=== PATIENT | female | born 1970 | race Caucasian/White ===

== ENCOUNTER 2016-09-16 06:55 | Outpatient (RCR) | payer BC ==
[2016-09-04] MEDS: IRON SUCROSE 200 MG/NS 100 ML (IVPB) IV SCH ×2 (09:45)
[2016-09-04 10:45] VITALS: BP 124/84
[2016-09-08 07:53] VITALS: BP 114/70
[2016-09-08] MEDS: IRON SUCROSE 200 MG/NS 100 ML (IVPB) IV SCH ×2 (07:53)
[2016-09-08 08:12] VITALS: BP 114/70
[2016-09-10] MEDS: IRON SUCROSE 200 MG/NS 100 ML (IVPB) IV SCH ×2 (10:19)
[2016-09-10 10:43] VITALS: BP 118/71
[2016-09-14 07:50] VITALS: BP 119/76
[~2016-09-16] VITALS: Ht 170.2 cm; Wt 126.1 kg
[~2016-09-16 06:55] MED LIST: IRON SUCROSE 200 MG/10 ML (VENOFER) VIAL IV ONE; NS (IVPB) 50 ML ONE
[2016-09-16] MEDS ORDERED: NS (IVPB) 50 ML ONE (06:59)
[2016-09-16] MEDS ORDERED: IRON SUCROSE 200 MG/10 ML (VENOFER) VIAL IV ONE (06:59)
[2016-09-16] MEDS: IRON SUCROSE 200 MG/NS 100 ML (IVPB) IV SCH ×2 (07:10)
[2016-09-16 07:25] VITALS: BP 118/77
== END 2016-12-03 | disposition home or self-care (01) ==
LOC: SDC 06:55
PROVIDERS: ATTEND Internal Medicine
DX: D50.9 Iron deficiency anemia, unspecified (principal)
CPT/HCPCS: 96365

== ENCOUNTER 2017-05-10 06:53 | Outpatient (RCR) | payer BC ==
[2017-04-30] MEDS: IRON SUCROSE 200 MG/10 ML (VENOFER) VIAL IV ONE (07:37)
[2017-04-30 08:00] VITALS: BP 98/61
[2017-05-03] MEDS: IRON SUCROSE 200 MG/NS 100 ML (IVPB) IV SCH ×4 (07:35→07:45)
[2017-05-03 08:05] VITALS: BP 103/70
[2017-05-05 07:35] VITALS: BP 114/69
[2017-05-05] MEDS: IRON SUCROSE 200 MG/10 ML (VENOFER) VIAL IV SCH (07:38)
[2017-05-05 08:12] VITALS: BP 114/69
[2017-05-07 07:10] VITALS: BP 104/67
[2017-05-07] MEDS: IRON SUCROSE 200 MG/10 ML (VENOFER) VIAL IV SCH (07:25)
[~2017-05-10] VITALS: Ht 170.2 cm; Wt 126.1 kg
[~2017-05-10 06:53] MED LIST changes: +NS (IVPB) 100 ML ONE; -NS (IVPB) 50 ML ONE
[2017-05-10] MEDS: IRON SUCROSE 200 MG/10 ML (VENOFER) VIAL IV SCH (07:00)
[2017-05-10 07:25] VITALS: BP 116/73
[2017-06-04] MEDS: IRON SUCROSE 200 MG/10 ML (VENOFER) VIAL IV ONE (10:19)
== END 2017-07-29 | disposition home or self-care (01) ==
LOC: SDC 06:53
PROVIDERS: ATTEND Internal Medicine
DX: D50.9 Iron deficiency anemia, unspecified (principal)
CPT/HCPCS: 96365

== ENCOUNTER → 2017-07-02 | Outpatient (CLI) | payer BC ==
--- NOTE | 2017-07-02 17:22 | Diagnostic Imaging Report ---
INDICATION: Routine screening. Comparison is made with prior exams from 04/08/2016 and 03/01/2015. The current study was also evaluated with a Computer Aided Detection (CAD) system. FINDINGS: Scattered fibroglandular densities are identified bilaterally. There is a circumscribed nodule in the far posterior right breast centrally, most consistent with intramammary lymph node. This appears stable. No new mass or malignant-appearing microcalcifications are seen. The axillae are unremarkable. IMPRESSION: No mammographic features suspicious for malignancy are identified. ACR BI-RADS Category 2: Benign findings. Result letter will be mailed to the patient. Note: At least 10% of breast cancer is not imaged by mammography. Dictated by: Dictated on workstation # [id number]
== END ==
LOC: RAD 12:59
PROVIDERS: ATTEND Internal Medicine
DX: Z12.31 Encounter for screening mammogram for malignant neoplasm of breast (principal)
CPT/HCPCS: 77067

== ENCOUNTER → 2018-06-24 | Outpatient (CLI) | payer BC ==
--- NOTE | 2018-06-27 08:47 | Diagnostic Imaging Report ---
INDICATION: Routine screening. COMPARISON: 07/02/2017 and 04/08/2016. TECHNIQUE: 2D and 3D bilateral screening mammography was performed with CAD. FINDINGS: Scattered fibroglandular densities are identified bilaterally. The circumscribed nodule in the central right breast appears stable. The nodular density in the inferior right breast is stable. No new mass or malignant appearing microcalcifications are seen. The axillae are unremarkable. IMPRESSION: No mammographic features suspicious for malignancy are identified. ACR BI-RADS Category 2: Benign findings. Result letter will be mailed to the patient. Note: At least 10% of breast cancer is not imaged by mammography. Dictated by: Dictated on workstation # [id number]
== END ==
LOC: RAD 12:57
PROVIDERS: ATTEND Internal Medicine
DX: Z12.31 Encounter for screening mammogram for malignant neoplasm of breast (principal)
CPT/HCPCS: 77067

== ENCOUNTER → 2020-02-09 | Outpatient (CLI) | payer BC ==
--- NOTE | 2020-02-12 09:39 | Diagnostic Imaging Report ---
INDICATION: Routine screening. Comparison is made to prior mammogram 06/24/2018 and 07/02/2017. 2-D and 3-D bilateral screening mammography was performed with CAD. Scattered fibroglandular densities are identified bilaterally. A nodular density central right breast posteriorly has decreased in size. No spiculated mass or malignant appearing microcalcifications are seen. Axillae are unremarkable. IMPRESSION: BI-RADS Category 2 No mammographic features suspicious for malignancy are identified. ACR BI-RADS Category 2: Benign findings. Result letter will be mailed to the patient. Note: At least 10% of breast cancer is not imaged by mammography. Dictated by: Dictated on workstation # [id number]
== END ==
LOC: RAD 13:44
PROVIDERS: ATTEND Internal Medicine
DX: Z12.31 Encounter for screening mammogram for malignant neoplasm of breast (principal)
CPT/HCPCS: 77063; 77067

== ENCOUNTER → 2020-04-15 | Outpatient (CLI) | payer OTHER, BC | LOC: GIR 15:46 | PROVIDERS: ATTEND Internal Medicine | DX: U07.1 COVID-19 (principal) | CPT/HCPCS: 87635 ==

== ENCOUNTER → 2020-05-22 | Outpatient (CLI) | payer BC ==
--- NOTE | 2020-05-22 10:20 | Diagnostic Imaging Report ---
EXAMINATION: US Right Lower Extremity Venous Duplex. TECHNIQUE: Multiple real-time grayscale images were obtained over the right lower extremity in various projections. Additional spectral analysis and color Doppler duplex images were also obtained. HISTORY: Right leg edema. COMPARISON: None available. FINDINGS: The right common femoral vein, deep femoral vein, superficial femoral vein and popliteal vein are patent with normal whittaker scale and doppler appearance. There is normal respiratory variation and augmentation. IMPRESSION: 1. No DVT of the right lower extremity. Dictated by: Dictated on workstation # [id number]
== END ==
LOC: RAD 08:45
PROVIDERS: ATTEND Internal Medicine
DX: R60.1 Generalized edema (principal)

== ENCOUNTER → 2021-03-24 | Outpatient (CLI) | payer BC ==
--- NOTE | 2021-03-24 15:57 | Diagnostic Imaging Report ---
INDICATION: Routine screening. COMPARISON: 02/09/2020 and 06/24/2018. TECHNIQUE: 2D and 3D bilateral screening mammography was performed with CAD. FINDINGS: Scattered fibroglandular densities are identified bilaterally. The tiny circumscribed density in the central right breast remains stable. The circumscribed lesion in the medial left breast does appear to be slightly larger and additional views are recommended. This is well-visualized on the CC view. This may be superiorly located on the MLO view. No malignant-appearing microcalcifications are seen. The axillae are unremarkable. IMPRESSION: Left breast density. Additional views are recommended for further evaluation. ACR BI-RADS Category 0: Incomplete. (Needs additional imaging evaluation). Result letter will be mailed to the patient. Note: At least 10% of breast cancer is not imaged by mammography. Dictated by: Dictated on workstation # [id number]
== END ==
LOC: RAD 15:30
PROVIDERS: ATTEND Internal Medicine
DX: Z12.31 Encounter for screening mammogram for malignant neoplasm of breast (principal)
CPT/HCPCS: 77063; 77067

== ENCOUNTER → 2021-03-28 | Outpatient (CLI) | payer BC ==
--- NOTE | 2021-03-28 14:11 | Diagnostic Imaging Report ---
Indication: Left breast density. Patient presents for additional views. Correlation is made with prior screening study from 03/24/2021. Unilateral left 2-D and 3-D dynastic mammography was performed. This includes spot compression ML, conventional 90 degree lateral, spot compression CC and rolled CC views. Additional views show persistent circumscribed nodule in the medial left breast. This appears to be superiorly located, approximately 8 cm from the nipple. IMPRESSION: BI-RADS 0 Persistent nodular density in the upper inner left breast approximately 8 cm from the nipple. Further evaluation with ultrasound is recommended and will be performed today. ACR BI-RADS Category 0: Incomplete. (Needs additional imaging evaluation). Result letter will be mailed to the patient. Note: At least 10% of breast cancer is not imaged by mammography. Dictated by: Dictated on workstation # [id number]
--- NOTE | 2021-03-28 14:41 | Diagnostic Imaging Report ---
INDICATION: Left breast density. Correlation is made with the diagnostic mammogram earlier the same day and screening mammogram from 03/26/2021. Sonographic interrogation of the upper inner left breast was performed. There is a lymph node identified at the 11:00 location, 6 cm from the nipple measuring 8 mm x 7 mm x 3 mm. This likely accounts for the mammographic density. No other masses are identified. No concerning sonographic findings are seen. IMPRESSION: BI-RADS Category 2 Intraparenchymal lymph node in the upper inner left breast, likely accounting for the mammographic density. The patient may return to routine annual screening mammography. ACR BI-RADS Category 2: Benign findings. Result letter will be mailed to the patient. Note: At least 10% of breast cancer is not imaged by mammography. Dictated by: Dictated on workstation # [id number]
== END ==
LOC: RAD 13:14
PROVIDERS: ATTEND Internal Medicine
DX: R92.2 Inconclusive mammogram (principal)
CPT/HCPCS: 76642; 77065; G0279

== ENCOUNTER → 2022-04-08 | Outpatient (CLI) | payer BC, OTHER ==
--- NOTE | 2022-04-08 15:43 | Diagnostic Imaging Report ---
INDICATION: Routine screening. COMPARISON: Prior mammograms of 03/24/2021 and 02/09/2020. TECHNIQUE: 2D and 3D bilateral screening mammography was performed with CAD. FINDINGS: Scattered fibroglandular densities are identified bilaterally. Circumscribed densities in both breasts appear stable and consistent with benign etiologies. No spiculated mass or malignant-appearing microcalcifications are seen. There are benign calcifications bilaterally. The axillae are unremarkable. IMPRESSION: No mammographic features suspicious for malignancy are identified. ACR BI-RADS Category 2: Benign findings. Result letter will be mailed to the patient. Note: At least 10% of breast cancer is not imaged by mammography. Dictated by: Dictated on workstation # [id number]
== END ==
LOC: RAD 13:33
PROVIDERS: ATTEND Internal Medicine
DX: Z12.31 Encounter for screening mammogram for malignant neoplasm of breast (principal)
CPT/HCPCS: 77063; 77067

== ENCOUNTER 2022-04-29 14:42 | Outpatient (CLI) | payer BC ==
[~2022-04-29] VITALS: Ht 170.2 cm; Wt 113.6 kg
[2022-04-29] MEDS ORDERED: IRON DEXTRAN 25 MG/NS 6.25 ML TOTAL VOLUME IV NR ×3 (15:00)
[2022-04-29] MEDS ORDERED: IRON DEXTRAN 1,000 MG/NS 250 ML IVPB IV NR ×2 (15:15)
[2022-04-29 16:07] VITALS: BP 112/72
== END 2022-04-29 17:49 ==
LOC: SDC 14:42
PROVIDERS: ATTEND Internal Medicine
DX: D50.9 Iron deficiency anemia, unspecified (principal)
CPT/HCPCS: 96365